=== PATIENT | male | born 1980 | race Caucasian/White ===

== ENCOUNTER 2024-02-06 09:43 | Emergency (ER) | payer OTHER, SELFPAY ==
--- NOTE | 2024-02-06 09:47 | ED.GENADULT ---
HPI - General Adult General Chief complaint: Neck Pain/Injury Stated complaint: Shoulder/Neck pain Time Seen by Provider: 02/06/24 09:46 Source: patient Mode of arrival: ambulatory Limitations: no limitations History of Present Illness HPI narrative: Patient is a 43-year-old male who presents with left shoulder pain that radiates to his neck. Patient states he was working on projects over the weekend when pain started. Called in sick to work on Saturday due to pain and rested. Went back on Saturday because he felt slightly better and was lifting heavy objects over his head causing pain to worsen. Denies any numbness, tingling or weakness to arm. Does report pain with range motion. Has been taking Tylenol and ibuprofen. Related Data Allergies Allergy/AdvReac Type Severity Reaction Status Date / Time No Known Allergies Allergy Mild Verified 02/06/24 10:04 Review of Systems Review of Systems: All systems reviewed & are unremarkable except as noted in HPI and below Constitutional: Constitutional: Denies body ache(s), Denies chills, Denies fatigue, Denies fever(s), Denies headache(s), Denies malaise and Denies weakness Eyes: Eyes: Denies blurry vision, Denies irritation and Denies loss of vision ENT: Denies otalgia, Denies headache(s), Denies nasal discharge, Denies sinus pain and Denies sore throat Cardiovascular: Cardiovascular: Denies chest pain, Denies irregular heart rhythm and Denies dyspnea Respiratory: Respiratory: Denies dyspnea Gastrointestinal: Gastrointestinal: Denies abdominal pain, Denies melena, Denies hematochezia, Denies diarrhea, Denies nausea and Denies vomiting Musculoskeletal: Musculoskeletal: Denies back pain, Denies myalgias and Reports arthralgias Integumentary/Breasts: Skin/Breast: Denies pruritus and Denies rash Neurologic: Denies headache(s), Denies loss of vision and Denies weakness Psychiatric: Psychiatric: Reports no additional psychiatric complaints Endocrine: Endocrine: Denies fatigue PMFSH Past Medical History Medical History Aftercare following surgery Carpal tunnel syndrome on both sides History of Dvmuu-Dktscfifh-Pckyu (WPW) syndrome Surgical History Surgical History History of splenectomy (~1992) Family History Family History Other Family history of congenital heart disease Social History Social History Smoking status: Never smoker Alcohol intake: never Substance use type: marijuana Other substance usage details: daily Gender identity (if verbalized by the patient): Male Comments At time of signature, agree with nursing past medical, surgical, social and family history. There is no relevant family history pertinent to the presenting complaint. Exam Const: General: cooperative, healthy appearing, comfortable, no acute distress and well nourished Nutritional Appearance: well nourished Orientation/consciousness: patient oriented x3 Limitations: no limitations HENMT: Head: normal to inspection, normocephalic and atraumatic Ears: hearing grossly normal bilaterally and external ears normal Face/Nose/Sinus: Normal external nose present, normal facial exam and face symmetric Face and sinus: normal facial exam and face symmetric Mouth: Yes lip normal Eyes: General: appearance normal, both eyes and all related structures Alignment and Position: alignment normal and position normal Periorbital: periorbital findings normal Eyelids: eyelids normal Pupils: Equal, round and reactive pupils present EOM: EOMs intact bilaterally Neck: Neck: normal visual inspection, full ROM and supple Chest: Chest palpation & inspection: normal inspection of the chest Resp: Effort & Inspection: normal respiratory effort and able to speak in complete sentences Au
[2024-02-06 09:56] VITALS: BP 147/88; PULSE 99; RESP 16; TEMP 37.2; O2SAT 99
== END 2024-02-06 10:16 | disposition home or self-care (01) ==
PROVIDERS: Emergency Provider Nurse Practitioner Family; PCP Physician Assistant
DX: M75.52 Bursitis of left shoulder (principal); F12.90 Cannabis use, unspecified, uncomplicated; I45.6 Pre-excitation syndrome
CPT/HCPCS: 99213; G0463

== ENCOUNTER 2024-04-23 07:09 | Emergency (ER) | payer OTHER, SELFPAY ==
--- NOTE | ~2024-04-23 | XR_ITS ---
XR elbow RT min 3V DATE: 04/23/2024 08:10 INDICATION: Pain, stiffness after feeling pop 2 days ago TECHNIQUE: 4 views COMPARISON: None FINDINGS: There are numerous radiopaque intra-articular loose bodies of the elbow joint, of variable size, the largest approximately 12 x 18.4 mm. There is elevation of posterior fat pad consistent with joint effusion. There is degenerative spurring consistent with osteoarthritis. No fracture or dislocation, periosteal reaction or bone destruction is evident. IMPRESSION: Joint effusion and numerous intra-articular loose bodies Reviewed, dictated and finalized at location B.
--- NOTE | ~2024-04-23 | XR_ITS ---
XR forearm RT 2V DATE: 04/23/2024 08:10 INDICATION: Pain and stiffness after feeling a pop 2 days ago TECHNIQUE: AP and lateral views right forearm COMPARISON: None FINDINGS: Numerous intra-articular loose bodies of the elbow joint are noted. There is osteoarthritic change at the elbow joint including joint space narrowing and degenerative spurring. There is an old healed fracture deformity of the mid to distal radial shaft. No recent fracture or di slocation is evident. Normal alignment at the elbow and wrist joints. IMPRESSION: Multiple radiopaque intra-articular loose bodies of the elbow joint Osteoarthritis of the elbow Old healed mid to distal radial shaft fracture No recent fracture or dislocation is evident Reviewed, dictated and finalized at location B.
--- NOTE | ~2024-04-23 | XR_ITS ---
XR wrist RT 2V DATE: 04/23/2024 08:10 INDICATION: Right arm pain and stiffness TECHNIQUE: AP and lateral views COMPARISON: None FINDINGS: No fracture, dislocation, periosteal reaction or bone destruction. There is mild osteoarthr itis of the first carpometacarpal joint. No erosive change or chondral calcinosis. IMPRESSION: Mild osteoarthritis of first carpometacarpal joint No fracture or dislocation Reviewed, dictated and finalized at location B.
[2024-04-23 07:12] VITALS: BP 141/89; PULSE 87; RESP 20; TEMP 36.5; O2SAT 100
--- NOTE | 2024-04-23 07:48 | ED.UPPEXIN ---
HPI - Extremity Injury (Upper) General Chief Complaint: Extremity Injury, Upper Stated Complaint: R arm pain Time Seen by Provider: 04/23/24 07:39 Source: patient Mode of arrival: ambulatory Limitations: no limitations History of Present Illness HPI narrative: 44-year-old jsrzt-[id number] male presents with right elbow and arm pain. He has a history of stiffness in his right elbow this been at baseline full while and limits his ability to fully extend this joint. He follows with Dr. Cristobal person in Orthopedic surgery for this who has been concerned that he might have a pinched nerve. Patient has a history of carpal tunnel surgery bilaterally. He is also noting that he is having pain in his right forearm as well as the right wrist. He has a history of radius and ulnar fracture in this right forearm when he was 13 years old. 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 The pain has been constant since. He has been trialing ibuprofen 600 mg as well as Tylenol. Last night it became intense enough that he took a leftover Vicodin the ED had previously been prescribed. He took a tablet at 8:40 p.m. and another at 2:40 a.m. this morning. Patient denies any joe paresthesias but describes it as a burning sensation. No fevers. Pain also radiates towards his R shoulder. Related Data Allergies Allergy/AdvReac Type Severity Reaction Status Date / Time No Known Allergies Allergy Mild Verified 04/23/24 07:15 [facility] Past Medical History Medical History Carpal tunnel syndrome on both sides History of radius fracture right; 13 years old; Dr Villalba orthopedic surgeon History of Xhiam-Xicvsixqg-Mkqyd (WPW) syndrome Right hand dominant Ulnar fracture right; 13 years old; Dr Villalba orthopedic surgeon Surgical History Surgical History History of carpal tunnel surgery bilateral Dec 2019; Dr Hernandez History of splenectomy (~1992) Family History Family History Other Family history of congenital heart disease Social History Social History Smoking status: Never smoker Alcohol intake: never Substance use type: marijuana Other substance usage details: daily Living arrangements: with family Additional living arrangements comments: (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 HEAD: Normocephalic, atraumatic. EYES: Non injected, non icteric ENT: Nares clear, no rhinorrhea or epistaxis. NECK: Supple. CHEST: Speaking in full sentences. No respiratory distress. HEART: Regular rate and rhythm. ABDOMEN: Soft, nondistended. EXTREMITIES: Swelling along R elbow without overlying erythema. No bony deformity of forearm or wrist on right. Able to flex elbow joint on right only to 90 degrees. Able to extend only to approximately 125-135 degrees at R elbow. Pain at the medial epicondyle. SKIN: Warm, dry, no rash. Warm and well perfused. No ecchymosis. NEURO: No focal deficits. Alert and oriented x3. Sensation intact throughout. PSYCH: Normal mood and affect. Course Vital Signs Vital signs: Vital Signs Temperature 97.7 F 04/23/24 07:12 Pulse Rate 87 04/23/24 07:12 Respiratory Rate 20 04/23/24 07:12 Blood Pressure 141/89 H 04/23/24 07:12 Pulse Oximetry 100 04/23/24 07:12 Oxygen Delivery Room Air 04/23/24 07:12 Temperature 97.7 F 04/23/24 07:12 Pulse Rate 82 04/23/24 09:00 Respiratory Rate 18 04/23/24
[2024-04-23] MEDS: ACETAMINOPHEN 500 MG TABLET 1000 MG PO (08:29)
[2024-04-23 09:00] VITALS: BP 141/81; PULSE 82; RESP 18; O2SAT 100
[2024-04-23] MEDS: KETOROLAC 30 MG/ML VIAL (*BKC) 15 MG IM (10:49)
== END 2024-04-23 10:59 | disposition home or self-care (01) ==
PROVIDERS: Emergency Provider Student in an Organized Health Care Education/Training Program; PCP Physician Assistant
DX: M19.021 Primary osteoarthritis, right elbow (principal); M18.9 Osteoarthritis of first carpometacarpal joint, unspecified; M24.021 Loose body in right elbow; I45.6 Pre-excitation syndrome; Z90.81 Acquired absence of spleen
CPT/HCPCS: 73080; 73090; 73100; 96372; 99284; A9270; J1885